=== PATIENT | female | born 1995 | race Caucasian/White ===

== ENCOUNTER 2024-12-19 07:38 | Emergency (ER) | payer OTHER, BC ==
[2024-12-19] MEDS: Ibuprofen 200 MG Tab PO STA (08:34)
== END 2024-12-19 08:46 | disposition home or self-care (01) ==
LOC: VM.ED 07:38
DX: S82.891A Other fracture of right lower leg, initial encounter for closed fracture (principal); W00.0XXA Fall on same level due to ice and snow, initial encounter
CPT/HCPCS: 29515; 73610-RT; 99283; 99283-25; A9270-GY